=== PATIENT | female | born 2000 | race Caucasian/White ===

== ENCOUNTER 2024-10-21 19:21 | Emergency (ER) | payer BC, SELFPAY ==
--- NOTE | ~2024-10-21 | XR_ITS ---
XR ankle RT min 3V 10/21/2024 19:43 INDICATION: Right ankle pain PROCEDURE: 4 views right ankle COMPARISON: No prior studies for comparison. FINDINGS: Fracture, dislocation or subluxation is not identified. The soft tissues appear within normal limits. No foreign bodies are identified. IMPRESSION: 1: NO ACUTE BONE OR JOINT ABNORMALITY IDENTIFIED. Reviewed, dictated and finalized at location O.
--- NOTE | 2024-10-21 19:22 | ED.LOWEXIN ---
HPI - Extremity Injury (Lower) General Chief Complaint: Extremity Injury, Lower Stated Complaint: Right ankle injury Time Seen by Provider: 10/21/24 19:22 Source: patient Mode of arrival: ambulatory Limitations: no limitations History of Present Illness HPI Narrative: Yudelka is a 23-year-old female patient presenting to the clinic today with complaints of right ankle pain/injury x3 days. She reports no known injury but she has been playing tennis. States she has been going at it pretty hard and is having medial ankle/anterior tib-fib pain. Has pain with dorsal flexion and plantar flexion. No bruising or swelling noted. Has been taking Tylenol/ibuprofen. Pain 3/10-dull throb worse when she ambulates. Related Data Home Medications ?Medication ?Instructions ?Recorded ?Confirmed ?Last Taken ?Type etonogestrel 68 mg subdermal 1 implant subdermal ONCE 10/21/24 Unknown History implant (Nexplanon) Allergies Allergy/AdvReac Type Severity Reaction Status Date / Time No Known Allergies Allergy Verified 10/21/24 19:32 Review of Systems Review of Systems: Pertinent positives per HPI. Patient denies any fever, chills, rash, headache, visual changes, dizziness, cough, runny nose, sore throat, shortness of breath, chest pain, palpitations, nausea, vomiting, diarrhea, constipation, abdominal pain, or any urinary issues. PMFSH Comments At the time of my signature, I reviewed and agree with the nursing past medical, surgical, social, and family history. There is no relevant family history pertinent to the patient complaint. Exam Narrative: General: Well-developed, well nourished, in no apparent distress Head: Normocephalic, atraumatic. Cardio: Regular rate and rhythm, s1 and s2 normal, no murmur appreciated. Resp: Clear to auscultation bilaterally, no rhonchi, rales, wheezing or rubs. Musculoskeletal: No deformity,tender to palpation over the medial malleolus and over the anterior distal tibia, pain with plantar flexion and dorsal flexion against resistance over the anterior distal tibia, grossly normal range of motion, muscle strength strong and equal, peripheral pulse strong, no edema, no cyanosis, normal gait and station Course Course Emergency Course: Portions of this record may have been created with voice recognition software. Level of Care: Express Care Visit Vital Signs Vital signs: Vital Signs Temperature 36.7 C 10/21/24 19:25 Pulse Rate 84 10/21/24 19:25 Respiratory Rate 20 10/21/24 19:25 Blood Pressure 130/76 10/21/24 19:25 Pulse Oximetry 99 10/21/24 19:25 Oxygen Delivery Room Air 10/21/24 19:25 Temperature 36.7 C 10/21/24 19:25 Pulse Rate 84 10/21/24 19:25 Respiratory Rate 20 10/21/24 19:25 Blood Pressure 130/76 10/21/24 19:25 Pulse Oximetry 99 10/21/24 19:25 Oxygen Delivery Room Air 10/21/24 19:25 Vital signs reviewed MDM - Extremity Injury (Lower) MDM Narrative Medical decision making narrative: At the time of visit patient is resting comfortably on the exam table. Patient appears to be nontoxic. Complaints of right ankle pain/injury x3 days. She reports no known injury but she has been playing tennis. States she has been going at it pretty hard and is having medial ankle/anterior tib-fib pain. Has pain with dorsal flexion and plantar flexion. No bruising or swelling noted. Has been taking Tylenol/ibuprofen. Pain 3/10-dull throb worse when she ambulates. On exam patient has tenderness to palpation over the distal be media and anterior tibia, pain with dorsal flexion and plantar flexion over the anterior tibia. Diagnostics: X-ray of the right ankle was performed and was negative for any sign of fracture or malalignment. Plan: I suspect patient has a right ankle sprain. Supportive measures were discussed with the patient and they voiced understanding discharge instructions and agrees to treatment plan. Return precautions reviewed Differential Diagnosis Differential diagnosis: Likely ankle sprain and strain and ankle fracture Discharge Plan Discharge Clinical Impression: Right ankle sprain Qualifiers: Encounter type: initial encounter Involved ligament of ankle: tibiofibular ligament Qualified Code(s): S93.431A - Sprain of tibiofibular ligament of right ankle, initial encounter Patient Disposition: Home Condition: Stable Instructions: Antibiotic Form, Ankle Sprain (ED) Additional Instructions: X-rays negative for any sign of fracture or malalignment of the right ankle. Rest, ice, elevate, and wear carlos wrap as directed Tylenol/motrin for pain as discussed. Gradually bear weight No running or sports until healed. Follow up with your PCP if symptoms persist more than 1 week. Patient Language: Yakut Prescriptions: No Action Nexplanon 68 mg implant 1 implant subdermal ONCE Rx Instructions: as a single dose Follow-up/Referrals: UNKNOWN,DOCTOR [Non-Staff] Time of Disposition: 20:07 Quality NIHSS Nursing Documentation ED NIHSS nursing documentation: reviewed/agree
[2024-10-21 19:25] VITALS: BP 130/76; PULSE 84; RESP 20; TEMP 36.7; O2SAT 99
--- OUTSIDE RECORDS SUMMARY | 2024-10-21 19:27 | XMS_ITS | Clinical Summary ---
Author Organization [facility] Address [address] [place] [address] Phone Care Team Providers Care Grails Web Application Developer Name Role Phone Georgia Gonzalez MD Primary Care Provider Allergies No known active allergies Medications PARoxetine (PAXIL) 10 MG TabletIndicatio ns:Generalized Anxiety Disorder,Major Depressive Disorder Take 10 mg by mouth daily. Indications: Generalized Anxiety Disorder, Major Depressive Disorder 6 Active Active Problems Problem Noted Date Diagnosed Date Major depressive disorder, single episode, moder ate 01/20/2016 Generalized anxiety disorder 01/20/2016 Separation anxiety disorder 01/20/2016 Resolved Problems Problem Noted Date Diagnosed Date Resolved Date Adjustment disorder with mix ed anxiety and depressed mood 12/09/2015 01/20/2016 Family History Medical History Relation Name Comments No Known Problems Brother No Known Problems Father No Known Problems Mother Relation Name Status Comments Brother Alive Father Alive Mother Alive Social History Tobacco Use Types Packs/Day Years Used Date Smoking Tobacco: Never Smokeless Tobacco: Never Tobacco Cessation:Counseling Given: Not Answered Alcohol Use Standard Drinks/Week Comments No 0 (1 standard drink = 0.6 oz pur e alcohol) Sexually Active Control Partners Comments Never Comments No Sex and Gender Information Value Date Recorded Sex Assigned at Not on file Legal Sex Female 3:57 PM CDT Gender Identity Not on file Sexual Orientation Not on file Last Filed Vital Signs Vital Sign Reading Time Taken Comments Blood Pressure 118/60 04/10/2024 10:03 AM TECHNICAL REPORT WRITER Pulse 83 04/10/2024 10:03 AM TECHNICAL REPORT WRITER Temperature 36.4 C (97.5 F) 04/10/2024 10:03 AM TECHNICAL REPORT WRITER Respiratory Rate 20 04/10/2024 10:03 AM TECHNICAL REPORT WRITER Oxygen Saturation 100% 04/10/2024 10:03 AM TECHNICAL REPORT WRITER Inhaled Oxygen Concentration - - Weight - - Height - - Body Mass Index - - Plan of Treatment Health Maintenance Due Date Last Done Comments Hepatitis C Virus (HCV) Screening 2000 Meningococcal B Immunization (1 of 2 - Standard) 2016 Pap Smear 2021 Influenza Immunization (#1) 2024 SARS-COV-2 Immunization ( - season) 2024 Respiratory Syncytial Virus (RSV) Immunization (Adult) (1 - 1-dose 75+ series) 11/28/2075 Hepatitis B Immunization Completed 002, 2000, 2000 Pneumococcal Immunization Combined Aged Out 06/18/2002, 08/26/2001 No longer eligibl e based on patient's age to complete this topic Measles Mumps Rubella (MMR) Immunization Discontinued 05/11/2006, 02/28/2002 Polio (IPV) Immunization Discontinued 007, 05/27/2001, 03/29/2001, Additional history exists Varicella Immunization Discontinued 05/11/2006, 2003 DTaP/Tdap/Td Immunization Discontinued 2011, 05/11/2006, 06/18/2002, Additional history exists TdaP Immunization Completed 05/04/2011 Hepatitis A Immunization Discontinued 08/05/2015, 09/20 Human Papillomavirus (HPV) Immunization Completed 03/14/2016, 11/02/2015, 08/05/2015 Meningococcal Immunization (ACWY) Completed 09/26/2017, 10/14/2012 Rotavirus Immunization Aged Out No lo nger eligible based on patient's age to complete this topic Insurance [facility] [place] Care Teams Grails Web Application Developer Relationship Specialty Start Date End Date Georgia Gonzalez MD [address] [place] [address] PCP - General Pediatrics 11/22/15
--- OUTSIDE RECORDS SUMMARY | 2024-10-21 19:27 | XMS_ITS | Clinical Summary ---
Author Organization [facility] Address [address] [place] [id number] Care Team Providers Care Security System Engineer Name Role Phone Unavailable Primary Care Provider Unavailabl e Allergies No known active allergies Medications No known medications Active Problems No known active problems Social History Tobacco Use Types Packs/Day Years Used Date Smoking Tobacco: Never Comments No Sex and Gender Information Value Date Recorded Sex Assigned at Not on file Legal Sex Female 9:27 AM LOCK TECHNICIAN Gender Identity Not on file Sexual Orientation Not on file Last Filed Vital Signs Vital Sign Reading Time Taken Comments Blood Pressure 120/86 03/04/2020 12:10 PM LOCK TECHNICIAN Pulse 69 03/04/2020 12:10 PM LOCK TECHNICIAN Temperature 36.8 C (98.3 F) 03/04/2020 12:10 PM LOCK TECHNICIAN Respiratory Rate 18 02/23/2020 12:33 PM LOCK TECHNICIAN Oxygen Saturation 99% 02/23/2020 12:33 PM LOCK TECHNICIAN Inhaled Oxygen Concentration - - Weight 43.1 kg (95 lb) 03/04/2020 12:10 PM LOCK TECHNICIAN Height 157.5 cm (5' 2) 03/04/2020 12:10 PM LOCK TECHNICIAN Body Mass Index 17.38 03/04/2020 12:10 PM LOCK TECHNICIAN Plan of Treatment Health Maintenance Due Date Last Done Comments CHLAMYDIA SCREENING (ANNUAL) 11-24 YEARS 11/28/2011 HPV VACCINES (1 - 3-dose series) 11/28/2015 DTAP/TDAP/TD VACCINES (1 - Tdap) 11/28/2019 HEPATITIS B VACCINES (1 of 3 - 19+ 3-dose series) 10/2019 CERVICAL CANCER SCREENING 2021 HPV/Cotest (21-29) 2021 PAP SMEAR 2021 INFLUENZA VACCINE (#1) 2024 Insurance BLUE ACCESS CHOICE
== END 2024-10-21 20:12 | disposition home or self-care (01) ==
LOC: EXPBETH 19:25
PROVIDERS: Emergency Provider Nurse Practitioner Family
DX: S93.401A Sprain of unspecified ligament of right ankle, initial encounter (principal); X58.XXXA Exposure to other specified factors, initial encounter
CPT/HCPCS: 73610; 99213; G0463